=== PATIENT | male | born 1975 | race Two or more races ===

== ENCOUNTER → 2020-07-11 | Emergency (ER) | payer OTHER ==
[~2020-07-11] VITALS: Ht 170.2 cm; Wt 74.8 kg
[~2020-07-11] MED LIST: LOTREL 5-10 MG1 CAP; PROTONIX40 M1 PO; SYNTHROID50 MCG
== END | disposition left against medical advice (07) ==
LOC: ER 23:51
DX: Z53.20 Procedure and treatment not carried out because of patient's decision for unspecified reasons (principal)